=== PATIENT | female | born 1960 | race Caucasian/White ===

== ENCOUNTER → 2016-11-30 | Outpatient (CLI) | payer MEDICARE ==
[~2016-11-30] MED LIST: ABILIFY5 MG PO; ALPRAZOLAM PO; AMBIEN10 MG PO; BYSTOLIC5 MG PO; CALTRATE PLUS T1 TAB PO; CELEXA PO; CRESTOR10 MG PO; DESYREL50 MG PO; DIAZEPAM PO; DICYCLOMINE HCL20 MG PO; FIORICET 50-321 EACH PO; HYDROCODON-ACE1 EAC1 PO; LIPITOR PO; METFORMIN PO; NORCO 7.5/325 T1 TAB PO; PRAVASTATIN SOD40 MG PO; TOPROL XL PO; VICODIN 5/500 T1 TAB PO; VICODIN ES 7.51 EAC1 PO; VICODIN PO; VIIBRYD1 EACH PO; XANAX1 MG PO
--- NOTE | ~2016-11-30 | EKG ---
PATIENT: ANGELA GONZALES UNIT #: [id number] Ventricular Rate: 86 BPM Atrial Rate: 86 BPM P-R Interval: 146 ms QRS Duration: 88 ms Q-T Interval: 372 ms QTC Calculation(Bezet): 445 ms P [place]: 72 degrees Calculated R [place]: -20 degrees Calculated T [place]: 44 degrees Diagnosis Line: Normal sinus rhythm Diagnosis Line: Possible Left atrial enlargement Diagnosis Line: Borderline ECG Diagnosis Line: Diagnosis Line: Confirmed by ELSI DEL CID MD ([id number]) on 12/04/2016 Diagnosis Line: 10:27:59 PM INTERPRETING MD: MARIA EGUENIA REARDON
[2016-11-30 08:02] LABS: HEMATOCRIT 43.5 % (35.0-45.0); HEMOGLOBIN 14.3 gm/dL (12.0-16.0); MEAN CELL VOLUME 92.5 FL (83-96); MEAN CORPUSCULAR HEMOGLOBIN 30.5 PG (28-34); MEAN PLATELET VOLUME 7.3 FL (6.5-11.5); RED BLOOD COUNT 4.7 X10e (3.90-5.30); RED CELL DISTRIBUTION WIDTH 14.1 % (11.0-15.5)
[2016-11-30 08:18] LABS: INR 0.9; PARTIAL THROMBOPLASTIN TIME 26.4 SECONDS (23.5-31.3); PROTHROMBIN TIME (PATIENT) 9.9 SECONDS (9.6-11.5)
[2016-11-30 08:28] LABS: BUN/CREATININE RATIO 14.44; CALCIUM SERUM 9.5 mg/dL (8.4-10.2); CREATININE SERUM 0.9 mg/dL (0.6-1.4); GLOM FILT RATE Estimated 71.5 mL/min (>60); POTASSIUM 4.4 mmol/L (3.5-5.1)
== END | disposition home or self-care (01) ==
LOC: CCVL 07:33
PROVIDERS: Internal Medicine Cardiovascular Disease
PROC: 4A023N7 Measurement of Cardiac Sampling and Pressure, Left Heart, Percutaneous Approach (ICD-10-PCS; principal; 2016-11-30)
PROC: B211YZZ Fluoroscopy of Multiple Coronary Arteries using Other Contrast (ICD-10-PCS; 2016-11-30)
PROC: B215YZZ Fluoroscopy of Left Heart using Other Contrast (ICD-10-PCS; 2016-11-30)
DX: R07.89 Other chest pain (principal); I25.10 Atherosclerotic heart disease of native coronary artery without angina pectoris; I10 Essential (primary) hypertension; E11.9 Type 2 diabetes mellitus without complications; Z79.84 Long term (current) use of oral hypoglycemic drugs; E78.5 Hyperlipidemia, unspecified; F17.210 Nicotine dependence, cigarettes, uncomplicated; Z79.899 Other long term (current) drug therapy; Z79.82 Long term (current) use of aspirin; F41.9 Anxiety disorder, unspecified; F32.9 Major depressive disorder, single episode, unspecified; G43.709 Chronic migraine without aura, not intractable, without status migrainosus; G89.4 Chronic pain syndrome; Z98.51 Tubal ligation status; Z82.49 Family history of ischemic heart disease and other diseases of the circulatory system
CPT/HCPCS: 36415; 80048; 82947; 85027; 85610; 85730; 93005; C1769; C1887; C1894; J1644; J2250; J3010